=== PATIENT | male | born 1955 | race Caucasian/White ===

== ENCOUNTER → 2020-11-17 10:16 | Outpatient (CLI) | payer OTHER, MEDICARE, SELFPAY ==
[2020-11-17 11:45] LABS: Alanine Aminotransferase 23 IU/L (<50); Albumin 4.3 g/dL (3.5-5.0); Albumin Globulin Ratio 1.5 (1.0-2.8); Alkaline Phosphatase 78 U/L (38-126); Aspartate Aminotransferase 23 IU/L (17-59); BUN Creatinine Ratio 18.8 (6-22); Bilirubin Total 0.6 mg/dL (0.2-1.3); Blood Urea Nitrogen 16 mg/dL (9-20); Calcium 9.5 mg/dL (8.4-10.2); Carbon Dioxide 30 mmol/L (22-32); Chloride 102 mmol/L (98-107); Cholesterol 121 mg/dL (140-199); Estimated Glomerular Filt Rate > 60.0 mL/min (>60); Globulin 2.8 g/dL (1.7-4.1); Glucose 109 mg/dL (80-110); HDL Cholesterol 32 mg/dL (40-60); HEMOLYSIS < 15 (0-50); LDL Cholesterol Calculated 71 mg/dL (<100); Potassium 4.1 mmol/L (3.4-5.1); Sodium 138 mmol/L (137-145); Total Protein 7.1 g/dL (6.3-8.2); Triglycerides 88 mg/dL (35-150)
[2020-11-17 11:56] LABS: LDL Cholesterol Direct 70 mg/dL (<100)
[2020-11-17 14:50] LABS: Creatine Kinase 108 U/L (55-170)
== END ==
PROVIDERS: PCP Internal Medicine; Referring Provider Internal Medicine; Visit Provider Internal Medicine
DX: E78.2 Mixed hyperlipidemia (principal); Z79.899 Other long term (current) drug therapy
CPT/HCPCS: 36415; 80053; 80061; 82550; 83721

== ENCOUNTER 2023-05-22 15:03 | Emergency (ER) | payer MEDICARE, OTHER, SELFPAY ==
[2023-05-22 15:07] VITALS: BP 168/78; PULSE 61; RESP 18; TEMP 36.9; O2SAT 98; BMI 29.2
[2023-05-22 15:14] VITALS: PULSE 60; O2SAT 98
[2023-05-22] MEDS: methylPREDNISolone 125 MG/2 ML VIAL IV (15:19)
[2023-05-22] MEDS: FAMOTIDINE 20 MG/2 ML VIAL IV (15:20)
--- NOTE | 2023-05-22 15:23 | ED.ALLEREA ---
HPI - Allergic Reaction General Chief complaint: Allergic Reaction Stated complaint: yellow jacket sting allergic reaction Time Seen by Provider: 05/22/23 15:14 Source: patient and family Mode of arrival: Ambulatory Limitations: no limitations History of Present Illness HPI narrative: 68-year-old male with history of coronary artery bypass on aspirin, lisinopril, rosuvastatin and carvedilol. 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 He states today he picked up an object and there was 1 on the object he did not realize it was done on the finger. He states he is had immediately swelling of his hand fingers and towards his wrist. Denies any swelling further preserved. No rash elsewhere. He denies any swelling tightness in his airway lips or chest. No shortness of breath. No chest pain. No lightheadedness or passing out. No nausea or vomiting, no diarrhea. He states he had a sting in the past did not seek treatment right away and that is swelling all the way up his arm to his shoulder and ended up falling up about 12 or 24 hours later in ER receiving steroids and Benadryl. Today he took 50 mg of Benadryl orally shortly after it occurred at 2:00 p.m.. And presents to the ED. He has been prescribed an EpiPen but did not use it today he did not feel like his symptoms warranted it. Patient denies any drug allergies. No tobacco, alcohol or illicit. Related Data Home Medications Medication Instructions Recorded Confirmed ASPIRIN (Aspirin) ##0 01/30/10 Previous Rx's Medication Instructions Recorded prednisone 20 mg tablet 40 mg (2 x 20 mg) PO DAILY 3 days 05/22/23 #6 tabs Allergies Allergy/AdvReac Type Severity Reaction Status Date / Time codeine AdvReac eboni Verified 05/22/23 15:07 loopy Yellow jacket Allergy shortness Uncoded 05/22/23 15:07 of breath, swelling at site Review of Systems Review of Systems ROS Unobtainable: All systems reviewed & are unremarkable except as noted in HPI and below Patient History Social History Smoking Status: Never smoker Smoking Status: Never smoker alcohol intake frequency: holidays/special occasions only Substance Use Type: does not use Exam Narrative Exam Narrative: GEN: well nourished, well appearing male, alert and oriented x 3, patient appears to be in mild distress. HEENT: Atraumatic, pupils are equal round reactive to light, extraocular movements are intact, nares are clear, Throat is clear without any exudates, erythema, tonsillar enlargement or uvular deviation, no swelling oropharynx HEART: Regular rate and rhythm without murmur, clicks, rubs. LUNGS:Lungs clear to auscultation, no wheezes, rales, crackles, chest moves symmetrically ABD:bowel sounds normal, soft, non-tender, no guarding, rebound, rigidity, no masses noted, no hepatosplenomegaly MSCL: Non-tender, no muscle atrophy, muscles strength 5/5 upper and lower extremities, full range of motion, normal gait. Patient has quite a bit of swelling of all 5 fingers, dorsum and palmar side of his hand. Erythema. Does not appear stingers in place appears that he was stung on the 4th digit between the middle and distal interphalangeal joints on the palmar side. Patient has full range of motion cap refills less than 2 seconds in all 5 fingers. Swelling stops about the level of the wrist. Patient has 2+ radial pulse with cap refill less than 2 seconds in all 5 fingers. NEURO:CN 2-12 intact, sensation normal Initial Vital Signs Initial Vital Signs: Vital Signs Temperature 98.4 F 05/22/23 15:07 Pulse Rate 61 05/22/23 15:07 Respiratory Rate 18 05/22/23 15:07 Blood Pressure 168/78 H 05/22/23 15:07 Pulse Oximetry 98 05/22/23 15:07 Oxygen Delivery Method Room Air 05/22/23 15:07 Course Orders Ordered: Discontinued Medications Famotidine (Famotidine 20 Mg/2 Ml Vial) 20 mg IV NOW KEMI Last Admin: 05/22/23 15:20 Dose: 20 mg Documented By: CORINA Methylprednisolone (Methylprednisolone 125 Mg/2 Ml Vial) 125 mg IV NOW ONE Stop: 05/22/23 15:15 Last Admin: 05/22/23 15:19 Dose: 125 mg Documented By: CORINA Vital Signs Vital signs: Vital Signs - 8 hr 05/22/23 15:07 05/22/23 15:14 05/22/23 15:30 Temperature 98.4 F Pulse Rate 61 60 58 L Respiratory Rate 18 Blood Pressure 168/78 H Pulse Oximetry 98 98 97 Oxygen Delivery Method Room Air 05/22/23 16:00 05/22/23 16:07 05/22/23 16:07 Temperature Pulse Rate 56 L 56 L Respiratory Rate Blood Pressure 130/70 Pulse Oximetry 96 98 Oxygen Delivery Method MDM - Allergic Reaction MDM Narrative Medical decision making narrative: 68-year-old male with history of known yellow jacket allergy. Patient has localized reaction currently not requiring epinephrine but does have quite a bit of swelling took 50 mg of Benadryl prior to arrival, we will give Pepcid as well as Solu-Medrol and monitor for any additional reaction. Event occurred about an hour and a half ago patient has not developed any oropharyngeal symptoms respiratory symptoms or other body system. Recheck patient is still feeling improved. States swelling somewhat improved. He is not had any other areas symptoms or anaphylaxis symptoms. Discussed with patient we will hold off on additional steroids but gave him a prescription if he has any minor worsening. To watch for infectious changes. Also discussed with patient he does have EpiPen refills available and has up-to-date EpiPen. Discharge Plan Departure Patient Disposition: Home Clinical Impression: Allergic reaction Qualifiers: Encounter type: initial encounter Qualified Code(s): T78.40XA - Allergy, unspecified, initial encounter Activity Restrictions/Additional Instructions: Follow-up as needed. You can take Benadryl 1-2 tablets every 6 hours as needed for itching, rash irritation. Please return for increasing swelling, redness, new numbness, tingling or weakness, any signs of inspection, if you have any swelling of the lips airway or difficulty with breathing or other new or concerning changes. Prescriptions: New prednisone 20 mg tablet 40 mg PO DAILY 3 Days Qty: 6 0RF No Action ASPIRIN (Aspirin) Qty: 0 Referrals: Lukasz Crawford MD [Primary Care Provider] - Stand Alone Forms: Patient Portal/API
[2023-05-22 15:30] VITALS: PULSE 58; O2SAT 97
[2023-05-22 16:00] VITALS: PULSE 56; O2SAT 96
[2023-05-22 16:07] VITALS: BP 130/70; PULSE 56; O2SAT 98
--- NOTE | 2023-05-23 10:14 | PC.NURSE ---
called patient this morning to brass pickler the prescription that he left without. no answer. I left a message with the patient. prescription in an envelope at the nurse's station.
== END 2023-05-22 16:53 | disposition home or self-care (01) ==
PROVIDERS: Emergency Provider Emergency Medicine; PCP Internal Medicine
DX: T63.441A Toxic effect of venom of bees, accidental (unintentional), initial encounter (principal)
CPT/HCPCS: 36415; 96374; 96375; 99284; J2930

== ENCOUNTER → 2023-12-26 12:34 | Outpatient (CLI) | payer MEDICARE, OTHER, SELFPAY ==
--- NOTE | 2023-12-26 | DI.RAD.S_ITS ---
PROCEDURE: XR HIP W PEL IF DONE LT 2V INDICATIONS: Unilateral primary osteoarthritis, left hip TECHNIQUE: 2 views of the hip were acquired. COMPARISON: None. FINDINGS: Bones: No fractures or dislocations. No suspicious bony lesions. The visualized pelvic ring appears intact. Mild nonuniform joint space narrowing with osteophytic lipping of the acetabulum. Soft tissues: No suspicious soft tissue calcifications or masses. IMPRESSION: Mild hip osteoarthritis. Dictated by: Nelson Morales M.D. on 12/26/2023 at 13:54 Approved by: Nelson Morales M.D. on 12/26/2023 at 13:54
== END ==
PROVIDERS: PCP Internal Medicine; Referring Provider Chiropractor; Visit Provider Chiropractor
DX: M16.12 Unilateral primary osteoarthritis, left hip (principal)
CPT/HCPCS: 73502

== ENCOUNTER 2025-01-30 18:19 | Emergency (ER) | payer MEDICARE, OTHER, SELFPAY ==
[2025-01-30 18:23] VITALS: BP 134/74; PULSE 58; RESP 18; TEMP 36.7; O2SAT 98; BMI 28.3
--- NOTE | 2025-01-30 18:27 | DI.RAD.S_ITS ---
PROCEDURE: XR KNEE RT 3V INDICATIONS: fall, pain TECHNIQUE: 3 views of the knee were acquired. COMPARISON: None. FINDINGS: Bones: No acute fractures or dislocations. No suspicious bony lesions. Soft tissues: No joint effusion. No suspicious soft tissue calcifications. Prepatellar soft tissue edema. IMPRESSION: Nonspecific prepatellar edema. No acute osseous abnormality. If there is continued clinical concern or persistent symptoms, repeat radiographs or cross-sectional imaging (e.g. CT, MRI) may be helpful for further evaluation. Approved by: Emiliano Snider M.D. on 01/30/2025 at 19:14
--- NOTE | 2025-01-30 18:27 | DI.RAD.S_ITS ---
PROCEDURE: XR WRIST LT MIN 3V INDICATIONS: fall, pain TECHNIQUE: 4 views of the wrist were acquired. COMPARISON: None. FINDINGS: Bones: No acute fractures or dislocations. No suspicious bony lesions. Soft tissues: No suspicious soft tissue calcifications. Mild soft tissue swelling surrounding the wrist IMPRESSION: Nonspecific soft tissue edema. No acute osseous abnormality. If there is continued clinical concern or persistent symptoms, repeat radiographs or cross-sectional imaging (e.g. CT, MRI) may be helpful for further evaluation. Approved by: Emiliano Snider M.D. on 01/30/2025 at 19:15
[2025-01-30 19:26] VITALS: PULSE 70
[2025-01-30 19:34] VITALS: BP 140/72; PULSE 56; O2SAT 98
[2025-01-30 20:00] VITALS: BP 141/71; PULSE 57; O2SAT 97
== END 2025-01-30 20:37 | disposition left against medical advice (07) ==
PROVIDERS: Emergency Provider Emergency Medicine; PCP Internal Medicine
DX: S69.92XA Unspecified injury of left wrist, hand and finger(s), initial encounter (principal); S89.91XA Unspecified injury of right lower leg, initial encounter; W19.XXXA Unspecified fall, initial encounter
CPT/HCPCS: 73110; 73562; 99281